=== PATIENT | male | born 1985 | race Caucasian/White ===

== ENCOUNTER 2022-08-26 15:11 | Emergency (ER) | payer SELFPAY ==
[~2022-08-26] VITALS: Ht 188 cm; Wt 90.7 kg
--- NOTE | 2022-08-26 15:30 | NUR ---
PT BIBRA FROM OUTSIDE OF A FRIENDS HOUSE PASSED OUT. PER REPORT ETOH, PT IS SLEEPING AND AROUSABLE. STABLE VITALS. AWAITING MD ARGUELLO.
--- NOTE | 2022-08-26 17:50 | NUR ---
PT AWAKE, PROVIDED W/ MEAL TRAY.
--- NOTE | 2022-08-26 18:39 | NUR ---
SEEN AND EXAMINED BY DR CARRASCO, PT IS AA4, AMBULATORY W STEADY GAIT. DENIES SI. HI. CLEARED BY ERMD. D/C IN STABLE CONDITION.
[2022-08-26 18:40] VITALS: BP 121/70
== END 2022-08-26 18:41 | disposition home or self-care (01) ==
LOC: ER 15:15
DX: F10.129 Alcohol abuse with intoxication, unspecified (principal); Y90.9 Presence of alcohol in blood, level not specified